=== PATIENT | female | born 1965 | race Native Hawaiian/Other Pacific Islander ===

== ENCOUNTER 2021-12-01 14:46 | Outpatient (CLI) | payer BC | END 2021-12-01 19:29 | disposition home or self-care (01) | LOC: US 14:46 | PROVIDERS: ATTEND Nurse Practitioner Family | DX: R10.9 Unspecified abdominal pain (principal); R19.00 Intra-abdominal and pelvic swelling, mass and lump, unspecified site ==

== ENCOUNTER 2022-07-13 09:54 | Outpatient (CLI) | payer OTHER | END 2022-07-13 22:53 | disposition home or self-care (01) | LOC: RAD 09:54 | PROVIDERS: ATTEND Nurse Practitioner Family | DX: M25.552 Pain in left hip (principal) ==

== ENCOUNTER 2022-11-03 07:50 | Outpatient (CLI) | payer OTHER | END 2022-11-03 19:16 | disposition home or self-care (01) | LOC: US 07:50 | PROVIDERS: ATTEND Nurse Practitioner Family | DX: R10.9 Unspecified abdominal pain (principal) ==

== ENCOUNTER 2022-11-24 09:15 | Outpatient (CLI) | payer OTHER | END 2022-11-24 21:44 | disposition home or self-care (01) | LOC: MAMMO 09:15 | PROVIDERS: ATTEND Nurse Practitioner Family | DX: Z12.31 Encounter for screening mammogram for malignant neoplasm of breast (principal); R06.09 Other forms of dyspnea | CPT/HCPCS: 93005 ==

== ENCOUNTER 2022-11-24 09:51 | Outpatient (CLI) | payer OTHER | END 2022-11-24 21:46 | disposition home or self-care (01) | LOC: RESP 09:51 | PROVIDERS: ATTEND Nurse Practitioner Family | DX: R06.09 Other forms of dyspnea (principal) | CPT/HCPCS: 93005 ==

== ENCOUNTER 2022-12-12 12:55 | Outpatient (CLI) | payer OTHER | END 2022-12-12 20:27 | disposition home or self-care (01) | LOC: RESP 12:55 | PROVIDERS: ATTEND Nurse Practitioner Family | DX: R06.09 Other forms of dyspnea (principal) ==